=== PATIENT | female | born 1975 | race Caucasian/White ===

== ENCOUNTER 2022-12-20 07:09 | Outpatient (CLI) | payer OTHER, SELFPAY ==
--- NOTE | 2022-12-20 07:58 | ECG_ITS ---
Measurements Intervals [place] Rate: 78 P: 61 AL: 139 QRS: 78 QRSD: 80 T: 61 QT: 369 QTc: 421 Interpretive Statements SINUS RHYTHM NO PREVIOUS ECG AVAILABLE FOR COMPARISON Electronically Signed On 12-20-2022 13:22:37 CDT by Marina Galo M.D.
== END 2022-12-20 07:10 | disposition home or self-care (01) ==
PROVIDERS: PCP Surgery Plastic and Reconstructive Surgery; Visit Provider Anesthesiology
DX: K42.9 Umbilical hernia without obstruction or gangrene (principal)
CPT/HCPCS: 93005

== ENCOUNTER 2022-12-25 00:54 | Day surgery (SDC) | payer OTHER, SELFPAY ==
[2022-12-19 15:11] VITALS: BMI 37.0
--- NOTE | 2022-12-19 15:34 | PC.NURSE ---
Report to the Outpatient Waiting Room, entrance under the green pavilion located off [facility], at time _0600_ on date _12/25/22. Planned Procedure Time: 0730. Time changes happen often and if your time is changed the preop area will call you the afternoon before. - You and your visitor will be asked to self-screen and do not enter if you have any COVID symptoms. - A mask is optional within the hospital at this time. Patients may have clear liquids (water, carbonated beverages, clear teas, apple juice) until 3 hours prior to surgery with a maximum of 20 ounces. - No food from midnight until time of surgery - Infants may have breast milk until 4 hours before surgery, formula 6 hours prior to surgery. - Children will be allowed to drink immediately following surgery. If applicable, please bring a bottle or sippy cup to assist with drinking. Juice, water, soda, and popsicles are readily available. For infants on formula, please bring formula the day of surgery. Pacifiers are allowed. Take the following medications with a SIP of water the morning of surgery: _desvenlafaxine, propranalol__ DO NOT STOP ANY OF YOUR OTHER PRESCRIPTION MEDICATIONS PRIOR TO SURGERY ?EXCEPT THE FOLLOWING Medications to discontinue per physician __vitamins Date to take last dose__12/22/22__ Please no make-up, nail korean, hairspray, perfume, deodorant, or body powder the day of surgery. No jewelry (including any body piercings) or valuables the day of surgery, leave them at home. Please take a shower or bath the night before, or the morning of, surgery with an antibacterial soap. Wear comfortable, loose fitting clothing. Children are encouraged to wear pajamas. - Jewelry must be removed prior to entering the operating room. Rings and piercings that are not removed may be cut off. - The hospital will not accept responsibility for valuables. - Please leave all valuables, including medications, at home the day of surgery. If you are going home after surgery, a licensed courtesy bus driver must drive you home. - NO public transportation without another adult if you receive anesthesia. - We recommend that an adult stay with you for 24 hours following discharge. - We also recommend that you do not drive, make important decision, drink alcoholic beverages, or take any drugs that were not prescribed by your health care provider for at least 24 hours after your discharge time. For Pediatric surgeries, we recommend two adults accompany the child home. Follow any additional instructions given to you from your surgeon. If you or anyone in your household have experienced Covid symptoms in the past week, please notify your surgeon or the nurse liaison at the phone number below for possible testing. Telephone instructions given to Gena Mullen__and asked if any additional questions and then verbalized understanding. Patient advised to call surgeon office or pre surgery nurse liaison [phone] if any additional questions.
[2022-12-25] VITALS (9 sets, daily range): BP systolic 89–131; BP diastolic 59–86; PULSE 62–92; RESP 16–20; TEMP 36.3–36.9; O2SAT 94–100
[2022-12-25 06:40] LABS: Urine Cotinine NEGATIVE
[2022-12-25] MEDS: ACETAMINOPHEN 500 MG TABLET 1000 MG PO (06:42)
[2022-12-25] MEDS: LACTATED RINGERS 1,000 ML 30 ML IV CONT ×2 (06:42→13:36)
[2022-12-25] MEDS: SCOPOLAMINE 1.5 MG PATCH TRANSDERM (06:43)
[2022-12-25] MEDS: KETOROLAC 15 MG/ML VIAL (*BKC) IV PUSH (06:43)
--- NOTE | 2022-12-25 06:54 | WPDHPUPDATE1 ---
History and Physical Update Update Date/Time: 12/25/22 06:54 History and Physical has been reviewed, including an updated exam of the patient. There are NO changes in the patient's condition. Risks, benefits, and alternatives have been discussed and questions answered. Patient agrees to proceed with procedure.
--- NOTE | 2022-12-25 07:13 | WPDANESEPPF ---
Anes - Initial Pre Proc Eval Procedure: Operation Date: 12/25/22 07:30 Proposed Procedures p Abdominoplasty with Liposuction - Bony Alcantara MD s Bilateral Lateral Liposuction of Breasts, Bilateral Breast Augmentation - Bony Alcantara MD s Open Recurrent Umbilical Hernia Repair with Possible Mesh - Nick Lynne, Date/Time: 12/25/22 07:13 Surgeon: Bony Alcantara MD Pre Op Diagnosis: skin laxity, micromastia, recurrent umb hernia Patient Data Age: 47 Gender: F Height: 1.52 m Weight: 86 kg Allergies Allergy/AdvReac Type Severity Reaction Status Date / Time Penicillins Allergy Intermediate Hives Verified 08/09/22 13:23 Home Medications Medication Instructions Recorded Confirmed Type aspirin 81 mg capsule 81 mg PO DAILY 08/09/22 12/19/22 History desvenlafaxine 50 mg 50 mg PO DAILY 08/09/22 12/19/22 History tablet,extended release 24 hr finasteride 5 mg tablet 5 mg PO DAILY 08/09/22 12/19/22 History ibuprofen 200 mg capsule 200 mg PO Q6H PRN Pain (Scale 08/09/22 12/19/22 History Score 4-6) progesterone micronized 100 mg 100 mg PO QAM 08/09/22 12/19/22 History capsule propranolol 60 mg capsule,24 60 mg PO DAILY 08/09/22 12/19/22 History hr,extended release magnesium 100 mg capsule 100 mg PO DAILY 12/19/22 12/19/22 History multivitamin 1 tablet PO DAILY 12/19/22 12/19/22 History Laboratory Tests 12/25/22 06:21 Cotinine Negative Patient hx anesthesia problems: post op nausea/vomiting Family hx anesthesia problems: none Results Review: All pre-operative results and documents have been reviewed as part of the pre-operative evaluation. 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 Informed Consent: The patient's anesthetic plan and its attendant risks and benefits were discussed with the patient/family/POA. Questions were solicited and answers provided to the satisfaction of the patient/family/POA.
--- NOTE | 2022-12-25 07:13 | WPDHPUPDATE1 ---
History and Physical Update Update Date/Time: 12/25/22 07:13 History and Physical has been reviewed, including an updated exam of the patient. There are NO changes in the patient's condition. Risks, benefits, and alternatives have been discussed and questions answered. Patient agrees to proceed with procedure.
--- NOTE | 2022-12-25 07:13 | PM.IMHP ---
H&P: HPI History of Present Illness Date/Time: 12/25/22 07:13 Chief Complaint: recurrent umbilical hernia Narrative: 47 yo woman presents for recurrent umbilical hernia repair. She was seen 4 months ago and a robotic repair was recommended at that time. She wanted to coordinate surgery with abdominoplasty, and due to time constraints in the OR, the robotic method was not going to be feasible. I discussed with her that an open repair could be done but there would be increased risks of hernia recurrence. Patient wants to proceed that way because she does not think she can take time off for 2 separate surgeries. Review of Systems Review of Systems: All systems reviewed & are unremarkable except as noted in HPI and below Constitutional: Constitutional: Denies chills, Denies fever(s), Denies headache(s) and Denies weight loss Eyes: Eyes: Denies change in vision ENT: Denies dizziness, Denies headache(s), Denies neck mass and Denies throat swelling Cardiovascular: Cardiovascular: Denies chest pain, Denies lightheadedness and Denies dyspnea Respiratory: Respiratory: Denies cough, Denies dyspnea and Denies wheezing Gastrointestinal: Gastrointestinal: Denies abdominal pain, Denies change in bowel habits, Denies nausea and Denies vomiting Genitourinary: Genitourinary: Denies hematuria and Denies dysuria Musculoskeletal: Musculoskeletal: Reports as per HPI Integumentary/Breasts: Skin/Breast: Reports as per HPI Neurologic: Denies dizziness and Denies headache(s) Allergic/Immunologic: Allergic/Immunologic: Denies throat swelling and Denies wheezing [facility] Past Medical History Medical History Depression with anxiety Surgical History Surgical History History of cholecystectomy History of tubal ligation Family History Family History Father Hypertension Social History Social History Smoking status: Never smoker Alcohol intake: never Alcohol use details: rare Substance use: never Living arrangements: with family Occupation/Education: occupation 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 Spiritual care concerns: No Meds Home Medications and Allergies Home Medications Medication Instructions Recorded Confirmed Type aspirin 81 mg capsule 81 mg PO DAILY 08/09/22 12/19/22 History desvenlafaxine 50 mg 50 mg PO DAILY 08/09/22 12/19/22 History tablet,extended release 24 hr finasteride 5 mg tablet 5 mg PO DAILY 08/09/22 12/19/22 History ibuprofen 200 mg capsule 200 mg PO Q6H PRN Pain (Scale 08/09/22 12/19/22 History Score 4-6) progesterone micronized 100 mg 100 mg PO QAM 08/09/22 12/19/22 History capsule propranolol 60 mg capsule,24 60 mg PO DAILY 08/09/22 12/19/22 History hr,extended release magnesium 100 mg capsule 100 mg PO DAILY 12/19/22 12/19/22 History multivitamin 1 tablet PO DAILY 12/19/22 12/19/22 History Allergies Allergy/AdvReac Type Severity Reaction Status Date / Time Penicillins Allergy Intermediate Hives Verified 08/09/22 13:23 Exam Const: General: no acute distress and alert Orientation/consciousness: patient oriented x3 HENMT: Head: normocephalic and atraumatic Ears: hearing grossly normal bilaterally Face/Nose/Sinus: Normal nares present Mouth: Yes Normal oral and palatal mucosa present Eyes: Periorbital: periorbital findings normal Sclera: sclerae normal EOM: EOMs intact bilaterally Neck: Neck: normal visual inspection, no lymphadenopathy and trachea midline Chest: Chest palpation & inspection: normal inspection of the chest Resp: Effort & Inspection: normal respiratory effort Auscultation: clear to auscultation bilaterally Cardio: Jugular venous distension: no JVD Rate: regular rate Rhythm: reg
--- NOTE | 2022-12-25 07:23 | W.PM.PROC2 ---
Procedure Note - Detailed Date of Procedure 12/25/22 Pre-op Diagnosis skin laxity, micromastia, recurrent umb hernia Post-op Diagnosis Same Procedure Performed 1. Bilateral breast augmentation 2. Bilateral lateral breast suction lipectomy 3. Progressive tensions abdominoplasty with suction lipectomy Surgeon Bony Alcantara MD Anesthesia General Findings Bilateral Nydia Inspira 520cc implants Right: REF# [id number] SN [id number] Dual plane 2 Left: REF# [id number] SN [id number] Dual plane 3 Bilateral lateral chest wall lipoaspirate: 250cc (125/side) Abdominal tissue removed: 1320 grams Abdominal / flank lipoaspirate: 2,750 cc Description of Procedure They are here today for the above. Previously and again today the risks, benefits, alternatives were discussed in extensive detail. I wanted them to be very realistic about the risks involved as well as expectations. We discussed aftercare and what to monitor for. I was very upfront about the risks of wound breakdown leading to loss of skin, open wounds, and need for additional procedures with permanent abdominal deformity. She understands she will still have residual lateral breast / chest wall volume. She understands the limitations of her shape based on natural anatomy. We discussed abdominal buldge and much of this is related to visceral adiposity and the limitations of what we can and can not accomplish. We discussed DVT/PE risks and management. Made sure answered all of their questions to their satisfaction today and consent was obtained. They were marked in the preoperative holding area with their verification. The patient was taken to the operating room placed supine on the operating table. Anesthesia was provided by anesthesiology. A Sanchez catheter was started. They were prepped and draped in a standard sterile fashion. A surgical time-out was taken. Breast 1% lidocaine and 0.25% Marcaine with epinephrine was used anesthetize as a field block. Tegaderm nipple Pardo were placed. A 15 blade used to make an incision along the inframammary fold. Dissection was continued at 45 degree angle until the chest wall as identified. I incised the pectoralis major along its inferior border and completely released the inferior border leaving the medial border intact. I created a subpectoral pocket in the appropriate dimensions based on our preoperative planning for the implant. She was placed sitting and S.A.F.E. suction lipectomy was completed of lateral chest with a 3mm cannula based on pre-operative planning, intraoperative observation, and rolling pinch. I then copiously irrigated with saline solution and verified a strict hemostasis. Next the use a triple antibiotic and Betadine containing solution to irrigate the pocket. I washed my gloves with the triple antibiotic and Betadine solution. We washed the implant immediately upon opening it with this solution and only opened it when we needed it. I used implant funnel and no-touch technique. The implant was introduced into the pocket using the funnel. Having verified positioning of the implant this was closed using 2-0 PDS followed by 3-0 Monocryl in a running subcuticular 4-0 Monocryl followed by tissue glue. Abdomen I placed the patient in a flexed position to verify the upper and lower markings would reach. I then placed supine. A thorough abdominal examination was completed. Stab incisions were made and tumescent solution infiltrated. Care was taken to protect the umbilical hernia during the procedure. Once adequate time was allowed for hemostasis a 5mm basket cannula was utilized to complete suction lipectomy based on S.A.F.E. technique in multiple planes and passes. There were turned to bilateral lateral decubitus position with care taken to protect them for injury during this process. Suction lipectomy continued to result based on pre-operative planning, intra-operative observation, and rolling pinch test which were in f
[2022-12-25] MEDS: ceFAZolin 2 GM/D5W 50 ML 2 GM/50 ML BAG IVPB (07:30)
--- NOTE | 2022-12-25 11:15 | W.PM.PROC2 ---
Procedure Note - Detailed Date of Procedure 12/25/22 Pre-op Diagnosis skin laxity, micromastia, recurrent umbilical hernia Post-op Diagnosis Same (2cm recurrent umbilical hernia) Procedure Performed Open 2 cm recurrent umbilical hernia repair Surgeon Nick Lynne, DO Anesthesia General Indications This is a 47-year-old woman who presented with a recurrent umbilical hernia. She has a history of umbilical hernia repair several years ago and over the past year has noticed a recurrent bulge in this region. She was found to have a 2 cm recurrent umbilical hernia on physical exam. She was seen Plastic surgery to plan for abdominal plasty and other cosmetic surgery and wanted to coordinate surgeries together. Discussions were made with the patient about treatment options and decision was made to proceed with open recurrent umbilical hernia repair at the time of abdominal plasty. Findings Open recurrent umbilical hernia repair was performed. The patient was found to have a 2 cm recurrent umbilical hernia containing preperitoneal fat. The preperitoneal fat and hernia sac were reduced and the hernia defect was measured. She had a 1 cm umbilical hernia and 1 cm hernia just inferior to the umbilicus for a total length of 2 cm. The hernia repair was performed using 0 Ethibond [id number] sutures. No specimens were obtained for pathology. Description of Procedure Procedure as well as risks, benefits, and alternatives were discussed with the patient. Written consent was obtained and placed in chart prior to procedure. Patient was brought back to surgical suite. She was placed supine on operating table. Time-out was done to confirm patient and procedure. She was then intubated by the anesthesia department. Her abdomen was prepped and draped in sterile fashion using chlorhexidine prep. The abdominoplasty portion of the procedure was performed up until the point where the umbilical stalk and hernia were exposed. I was then called in to perform the repair. The hernia defect just inferior to the umbilicus was cleared circumferentially from any remaining subcutaneous fat using electrocautery. The hernia sac was then excised with electrocautery. There was a small rim of fascia between the infra umbilical hernia and the umbilical hernia. This was incised with electrocautery. The hernia sac and preperitoneal fat was then reduced from the umbilical hernia from the underside. The fascia was then reapproximated using 0 Ethibond [id number] sutures. The 1st 3 sutures were placed on the underside of the umbilical fascia to prevent compromising the blood supply to the umbilical stalk. The remaining sutures inferior to the umbilicus were then placed using 0 Ethibond [id number] sutures. The repair was inspected and appeared secure. No other abnormalities were noted. Dr. Alcantara was then called in to complete his portion of the procedure. Estimated Blood Loss 0 Complications No immediate complications Condition Stable Disposition Observation [facility] Billing Surgery - Charge Forward: Surgery Billing
[2022-12-25] MEDS: ceFAZolin SODIUM 1 GM VIAL IV PUSH (12:30)
[2022-12-25] MEDS: TRANEXAMIC ACID 1,000 MG/10 ML AMPUL 1000 MG IV PUSH (12:34)
[2022-12-25] MEDS: BUPIVACAINE/EPINEPHRINE 0.25% 50 ML VIAL 40 ML INFILTRATE (13:11)
[2022-12-25] MEDS: LACTATED RINGERS 1,000 ML 125 ML IV CONT ×2 (15:00→23:11)
[2022-12-25] MEDS: ONDANSETRON INJ 4 MG/2 ML VIAL IV PUSH ×2 (15:15→18:47)
[2022-12-25] MEDS: MORPHINE SULFATE (*CRX) 2 MG/ML INJ IV PUSH ×2 (15:15→23:10)
[2022-12-25] MEDS: KETOROLAC 10 MG TABLET PO ×2 (17:45→19:35)
[2022-12-25] MEDS: carisoprodoL (*CRX) 350 MG TABLET PO ×2 (17:50→19:36)
[2022-12-25] MEDS: ENOXAPARIN 40 MG/0.4 ML SYRINGE SUB-Q (19:36)
[2022-12-25] MEDS: METOCLOPRAMIDE HCL INJ 10 MG/2 ML VIAL 5 MG IV PUSH (20:13)
[2022-12-26] VITALS (7 sets, daily range): BP systolic 93–105; BP diastolic 57–65; PULSE 60–97; RESP 16–18; TEMP 36.9–37.1; O2SAT 95–99
[2022-12-26] MEDS: METOCLOPRAMIDE HCL INJ 10 MG/2 ML VIAL 5 MG IV PUSH (02:31)
[2022-12-26] MEDS: carisoprodoL (*CRX) 350 MG TABLET PO ×3 (02:32→14:38)
[2022-12-26] MEDS: KETOROLAC 10 MG TABLET PO ×3 (02:32→14:38)
[2022-12-26] MEDS: LACTATED RINGERS 1,000 ML 125 ML IV CONT (06:40)
--- NOTE | 2022-12-26 07:19 | WPDPN ---
Progress Note: A&P Assessment and Plan (1) Skin laxity: Code(s): L57.4 - Cutis laxa senilis Status: Acute Assessment and Plan: Doing well after bilateral augmentation mammaplasty, lateral breast / chest wall suction lipectomy, progressive tension abdominoplasty with suction lipectomy as well as umbilical hernia repair by Dr. Terrell. Will plan for discharge home when ambulating, pain controlled, tolerating diet, improved sats. Today we had a lengthy discussion about the care. Activity limitations. What to monitor for. Importance of ambulation and incentive spirometry / deep breathing. Discussed what is a medical emergency and when to dial 911 / proceed to the ER. Call with all other questions or concerns. Will see her back. (2) Micromastia: Code(s): N64.82 - Hypoplasia of breast Status: Acute (3) Localized adiposity: Code(s): E65 - Localized adiposity Status: Acute (4) Recurrent umbilical hernia: Code(s): K42.9 - Umbilical hernia without obstruction or gangrene Status: Acute Subjective Date/time seen: 12/26/22 07:19 Interval history: Doing well after bilateral augmentation mammaplasty, lateral breast / chest wall suction lipectomy, progressive tension abdominoplasty with suction lipectomy as well as umbilical hernia repair by Dr. Terrell. Nausea overnight. No emesis. No fevers / chills. No SOB. No CP. On 02 this morning with decrease sats overnight. IS at bedside. Review of Systems Review of Systems: All systems reviewed & are unremarkable except as noted in HPI and below Exam Narrative: Alert & Oriented NOD Respiratory unlabored Bilateral breast soft. No sings of infection. No hematoma. No seroma. Abdomen is healing well. No signs of infection. No hematoma. No seroma. Good color and capillary refill except 2 x 2cm slightly dusky at inferior incision just left of midline. No calf tenderness. Negative Mariza's Objective Data Vital Signs Vital Signs: Vital Signs - 24 hr 12/25/22 13:36 12/25/22 13:45 12/25/22 14:00 Temperature 36.4 C Pulse Rate 75 89 80 Respiratory Rate 16 20 20 Blood Pressure 105/68 89/63 L 105/66 Pulse Oximetry 98 99 94 Oxygen Delivery Simple Face Mask Simple Face Mask Nasal Cannula Oxygen Flow Rate 8 8 2 12/25/22 14:15 12/25/22 14:24 12/25/22 14:35 Temperature 36.9 C Pulse Rate 62 64 63 Respiratory Rate 18 20 16 Blood Pressure 102/63 107/63 96/62 L Pulse Oximetry 96 95 97 Oxygen Delivery Nasal Cannula Nasal Cannula Oxygen Flow Rate 2 2 12/25/22 19:40 12/25/22 19:40 12/25/22 23:20 Temperature 36.4 C L Pulse Rate 78 78 92 Respiratory Rate 16 16 16 Blood Pressure 92/69 L Pulse Oximetry 98 98 95 Oxygen Delivery Nasal Cannula Nasal Cannula Oxygen Flow Rate 2 2 12/25/22 23:20 12/26/22 02:40 12/26/22 02:40 Temperature 36.6 C 36.9 C Pulse Rate 92 60 60 Respiratory Rate 16 16 16 Blood Pressure 97/59 L 98/65 L Pulse Oximetry 95 96 96 Oxygen Delivery Nasal Cannula Oxygen Flow Rate 2 12/26/22 05:50 Temperature Pulse Rate 92 Respiratory Rate 16 Blood Pressure 100/65 Pulse Oximetry 98 Oxygen Delivery Oxygen Flow Rate Intake/Output Intake/Output: Intake & Output 12/23/22 12/24/22 12/25/22 12/26/22 23:59 23:59 23:59 23:59 Intake Total 1150 1200 Output Total 320 460 Balance 830 740 Meds/Results Medications: Active Medications Generic Name Dose Route Start Last Admin Trade Name Freq PRN Reason Stop Dose Admin Calcium Carbonate 200 mg 12/25/22 18:20 Calcium Carbonate (Tums) 500 Mg (200 Mg Elemental) PO Q6H PRN Indigestion Carisoprodol 350 mg 12/25/22 18:00 12/26/22 02:32 Carisoprodol (*Crx) 350 Mg Tablet PO 350 mg Q6HR LATANYA Administration Diazepam 5 mg 12/25/22 13:20 Diazepam (*Crx) 5 Mg Tablet PO TID PRN Anxiety Docusate Sodium 100 mg 12/25/22 21:00 12/25/22 22:16 Docusate Sodium 100 Mg C
--- NOTE | 2022-12-26 07:25 | PM.DS ---
DS: Admitting Diagnosis Discharge Date 12/26/2022 Admitting Diagnosis Micromastia Skin laxity Localized adiposity Umbilical hernia DS: Discharge Diagnosis Discharge Diagnosis (1) Micromastia: Code(s): N64.82 - Hypoplasia of breast Status: Acute (2) Skin laxity: Code(s): L57.4 - Cutis laxa senilis Status: Acute (3) Localized adiposity: Code(s): E65 - Localized adiposity Status: Acute (4) Recurrent umbilical hernia: Code(s): K42.9 - Umbilical hernia without obstruction or gangrene Status: Acute DS: Summary Hospital Course Hospital Course: She underwent bilateral augmentation mammaplasty, lateral breast / chest wall suction lipectomy, progressive tension abdominoplasty with suction lipectomy as well as umbilical hernia repair by Dr. Terrell. Has had some post-op nausea. Improving this AM. Minimal ambulation. Overnight low level NC O2. Improving this am. Will plan for discharge home when ambulating, pain controlled, tolerating diet, improved sats. Time Spent with Patient Time attestation: Total time spent providing and/or coordinating discharge services: Exam Narrative: Alert & Oriented NOD Respiratory unlabored Bilateral breast soft. No sings of infection. No hematoma. No seroma. Abdomen is healing well. No signs of infection. No hematoma. No seroma. Good color and capillary refill except 2 x 2cm slightly dusky at inferior incision just left of midline. No calf tenderness. Negative Mariza's Discharge Plan Discharge Patient Disposition: Home, Self-Care Discharge Instructions: POST OPERATIVE DISCHARGE INSTRUCTIONS BONY ALCANTARA M.D. [facility] [address] [place] [address] [address] for 24 hours after anesthesia and while you are taking pain medication. Take all prescribed medication as directed Diet as tolerated. No lifting or activity that raises blood pressure for 48 hours. Regular walking / ambulation. May shower 24 hours after surgery. Once you shower do not take pain medication before showering as the combination of medication and heat may cause you to feel dizzy or pass out. No pools or tubs for 2 weeks. Slowly stand up straight as tolerated. No straining or lifting more than 20 pounds. If no bowel movement within 24 hours may use laxative. Call with any questions or concerns. Dressing Care: Continue abdominal binder / foam 23 hours per day. If you have any questions or concerns, please call the office . If it is after hours you will be directed to the hearing care professional exchange. Shortness of breath, chest pain, or other medical emergency dial 911 / proceed to the Emergency Room. Stand Alone Forms: General Discharge Instructions Follow-up/Referrals: Bony Alcantara MD [Physician] - 1 Week Discharge Medications: No Action aspirin 81 mg capsule 81 mg PO DAILY Patient Comments: has stopped taking on 12/19/22 finasteride 5 mg tablet 5 mg PO DAILY progesterone micronized 100 mg capsule 100 mg PO QAM Rx Instructions: off 7 days; repeat cycle desvenlafaxine 50 mg tablet extended release 24 hr 50 mg PO DAILY propranolol 60 mg capsule,extended release 24 hr 60 mg PO DAILY Patient Comments: takes for migraine ibuprofen 200 mg capsule 200 mg PO Q6H PRN (Reason: Pain (Scale Score 4-6)) multivitamin [Daily Vitamin] Tablet 1 tablet PO DAILY Patient Comments: vitamin d magnesium 100 mg Capsule 100 mg PO DAILY
[2022-12-26] MEDS: ONDANSETRON INJ 4 MG/2 ML VIAL IV PUSH (08:47)
[2022-12-26] MEDS: DOCUSATE SODIUM 100 MG CAPSULE PO (08:48)
--- NOTE | 2022-12-26 09:58 | WPDANESPN ---
Anes - Prog Note Post-Op Date/Time: 12/26/22 09:58 Cardiovascular status: normal Respiratory status: normal Airway patency: baseline Mental status: baseline Post-Op hydration status: normal Vital Signs: Last Vital Signs Temp 98.7 F 12/26/22 08:20 Pulse 87 12/26/22 08:20 Resp 16 12/26/22 08:20 BP 94/59 L 12/26/22 08:20 Pulse Ox 99 12/26/22 08:20 O2 Del Method Nasal Cannula 12/26/22 02:40 O2 Flow Rate 2 12/26/22 02:40 Pain Score (VAS): 0/10 I/O: Intake & Output 12/25/22 12/26/22 12/26/22 23:59 07:59 15:59 Intake Total 1000 1200 Output Total 165 460 Balance 835 740 Post-procedural complaints: none Patient Feedback: Patient satisfied with anesthetic care.
[2022-12-26] MEDS: oxyCODONE/ACETAMINOPHEN (*CRX) 5-325 MG TABLET PO ×2 (10:07→16:01)
== END 2022-12-26 16:17 | disposition home or self-care (01) ==
LOC: ANHSURGERY 13:21 → ANHOB2 14:31
PROVIDERS: Surgery; Visit Provider Surgery Plastic and Reconstructive Surgery
PROC: (CPT 19325; principal; 2022-12-25 07:30)
PROC: (CPT 19325; 2022-12-25 07:30)
PROC: (CPT 49613; 2022-12-25 07:30)
DX: K42.9 Umbilical hernia without obstruction or gangrene (principal); Z41.1 Encounter for cosmetic surgery; N64.82 Hypoplasia of breast; L57.4 Cutis laxa senilis; E65 Localized adiposity; F41.8 Other specified anxiety disorders; Z79.82 Long term (current) use of aspirin; E66.9 Obesity, unspecified; Z68.37 Body mass index [BMI] 37.0-37.9, adult; Z79.899 Other long term (current) drug therapy
CPT/HCPCS: 49613; 19325; 15877; 15830; 15847; 80307; 99199; A9270; J0171; J0690; J1100; J1170; J1580; J1650; J1885; J2250; J2270; J2405; J2704; J2765; J3010; J7120